=== PATIENT | male | born 1970 | race Caucasian/White ===

== ENCOUNTER 2017-05-23 09:11 | Emergency (ER) | payer OTHER ==
[~2017-05-23] VITALS: Ht 182.9 cm; Wt 69.0 kg
[2017-05-23 09:45] LABS: HEMATOCRIT 44.8 % (38.0-50.0); MCH 33.4 PG (29.0-34.0); MCHC 34.6 G/DL (30.0-36.0); MCV 96.6 FL (86-99); MEAN PLAT.VOLUME 10.2 uM^3 (9.0-12.4); PLATELET COUNT 350 K/uL (156-360); RBC DIS.WIDTH-CV 12.6 % (11.8-14.6); RED BLOOD COUNT 4.64 M/uL (4.00-5.50); WHITE BLOOD COUNT 12.4 K/uL (4.1-10.2)
[2017-05-23 09:55] LABS: CHLORIDE 104 mEq/L (99-109); POTASSIUM 4.5 mEq/L (3.7-5.4); SODIUM 140 mEq/L (136-147)
[2017-05-23 09:57] LABS: GLUCOSE 103 mg/dL (70-99)
[2017-05-23 09:58] LABS: ANION GAP 12 MEQ/L (2-14)
[2017-05-23 09:59] LABS: TOTAL BILIRUBIN 0.6 mg/dL (0.0-1.0)
[2017-05-23 10:00] LABS: ALKALINE PHOSPHATASE 80 IU/L (3-129)
[2017-05-23 10:01] LABS: GFR ESTIMATE (CALCULATED) > 59 mL/min/
[2017-05-23 10:02] LABS: UREA NITROGEN (BUN) 12 mg/dL (9-23)
[2017-05-23 10:04] LABS: LIPASE 17 U/L (1.0-51.0)
[2017-05-23] MEDS ORDERED: ULTRAM50 MG PO (12:06)
[2017-05-23 13:20] VITALS: BP 133/96
== END 2017-05-23 16:02 | disposition home or self-care (01) ==
LOC: EME 09:11
PROVIDERS: Nurse Practitioner Family
DX: R91.8 Other nonspecific abnormal finding of lung field (principal); R06.00 Dyspnea, unspecified; R07.9 Chest pain, unspecified; R04.2 Hemoptysis; R63.4 Abnormal weight loss; Z68.20 Body mass index [BMI] 20.0-20.9, adult; F17.210 Nicotine dependence, cigarettes, uncomplicated
CPT/HCPCS: 71260; 80053; 81003; 83690; 85027; 94640; 99281; 99284; J7030

== ENCOUNTER → 2017-05-29 | Outpatient (CLI) | payer OTHER ==
[~2017-05-29] MED LIST: COLACE100 MG PO; HYDROCODON-ACE1 EAC7 PO; ULTRAM50 MG PO
== END | disposition home or self-care (01) ==
LOC: CDC 08:51
DX: R22.2 Localized swelling, mass and lump, trunk (principal); R91.8 Other nonspecific abnormal finding of lung field
CPT/HCPCS: 93000

== ENCOUNTER → 2017-05-30 | Outpatient (CLI) | payer OTHER ==
[2017-05-30 07:55] LABS: BASE EXCESS 2.6 mEq/L (-3 to +3); BICARBONATE 27.2 mEq/L (22-26); CARBOXY HGB 4.5 % (0-5); METHEMOGLOBIN 0.9 % (0-1.5); PCO2 41 mm Hg (35-45); PO2 55 mm Hg (80-100); SITE RR; pH 7.43 (7.35-7.45)
[2017-05-30 07:56] LABS: FI02 21 %
== END | disposition home or self-care (01) ==
LOC: RES 07:35
PROVIDERS: Thoracic Surgery (Cardiothoracic Vascular Surgery)
DX: R94.2 Abnormal results of pulmonary function studies (principal); R91.8 Other nonspecific abnormal finding of lung field
CPT/HCPCS: 36600; 82803; 94060; 94726; 94729

== ENCOUNTER 2017-05-31 06:28 | Day surgery (SDC) | payer OTHER ==
[~2017-05-31] VITALS: Ht 182.9 cm; Wt 69.4 kg
[~2017-05-31 06:28] MED LIST changes: -COLACE100 MG PO; -HYDROCODON-ACE1 EAC7 PO
[2017-05-31 06:44] VITALS: BP 147/90
[2017-05-31 06:59] LABS: BASOPHIL COUNT 0.1 K/uL (0-0.1); EOSINOPHIL (%) 3.1 % (0-5); EOSINOPHIL COUNT 0.3 K/uL (0-0.3); HEMATOCRIT 43.9 % (38.0-50.0); IMMATURE GRANULOCYTE (%) 0.5 % (0.0-0.7); IMMATURE GRANULOCYTE COUNT 0.1 K/uL; INSTRUMENT ABS NEUTROPHIL CT 7.3 K/uL; LYMPHOCYTE COUNT 2.3 K/uL (1.0-2.8); MCH 32.9 PG (29.0-34.0); MCHC 33.7 G/DL (30.0-36.0); MCV 97.6 FL (86-99); MEAN PLAT.VOLUME 9.7 uM^3 (9.0-12.4); MONOCYTE (%) 8.6 % (3-12); NEUTROPHIL (%) 66.1 % (45-76); NEUTROPHIL COUNT 7.3 K/uL (1.8-6.4); PLATELET COUNT 485 K/uL (156-360); RBC DIS.WIDTH-CV 12.7 % (11.8-14.6); RBC DIS.WIDTH-SD 45.6 % (39-53)
[2017-05-31 07:26] LABS: CHLORIDE 104 mEq/L (99-109)
[2017-05-31 07:27] LABS: POTASSIUM 4.8 mEq/L (3.7-5.4); SODIUM 139 mEq/L (136-147)
[2017-05-31 07:29] LABS: GLUCOSE 92 mg/dL (70-99)
[2017-05-31 07:30] LABS: ANION GAP 7 MEQ/L (2-14)
[2017-05-31 07:31] LABS: TOTAL BILIRUBIN 0.2 mg/dL (0.0-1.0)
[2017-05-31 07:32] LABS: ALKALINE PHOSPHATASE 89 IU/L (3-129); GFR ESTIMATE (CALCULATED) > 59 mL/min/
[2017-05-31 07:34] LABS: UREA NITROGEN (BUN) 14 mg/dL (9-23)
[2017-05-31] MEDS ORDERED: HYDROCODON-ACE1 EAC7 PO (11:33)
[2017-05-31] MEDS ORDERED: COLACE100 MG PO (11:33)
[2017-05-31 12:35] VITALS: BP 121/62
[2017-05-31 13:46] VITALS: BP 114/72
== END 2017-05-31 13:55 | disposition home or self-care (01) ==
LOC: SDC 06:28
PROVIDERS: Thoracic Surgery (Cardiothoracic Vascular Surgery)
DX: C34.11 Malignant neoplasm of upper lobe, right bronchus or lung (principal); C77.1 Secondary and unspecified malignant neoplasm of intrathoracic lymph nodes; F17.210 Nicotine dependence, cigarettes, uncomplicated
CPT/HCPCS: 80053; 85025; 85610; 86850; 86900; 86901; 88108; 88305; 88341 TC; 88342 TC; 94640; J0171; J0330; J0690; J1170; J2175; J2250; J2405; J2710; J2765; J3010